=== PATIENT | female | born 1945 | race Caucasian/White ===

== ENCOUNTER 2018-09-18 09:35 | Outpatient (CLI) | payer MEDICARE, BC ==
[2018-09-18] MEDS ORDERED: CHOL200024 PO (10:37)
[2018-09-18] MEDS ORDERED: MULT-717 PO (10:37)
[2018-09-18] MEDS ORDERED: LISI-167 PO (10:37)
[2018-09-18 11:11] LABS: BASOPHILS # (AUTO) 0.03 x10^3/uL (0-0.1); BASOPHILS % (AUTO) 1 % (0-1); EOSINOPHILS # (AUTO) 0.22 x10^3/uL (0-0.4); EOSINOPHILS % (AUTO) 3 % (1-7); LYMPHOCYTES # (AUTO) 2.76 x10^3/uL (1-3.4); LYMPHOCYTES % (AUTO) 36 % (22-44); MD NO; MEAN CORPUSCULAR HEMOGLOBIN 32.8 pg (27.0-34.8); MEAN CORPUSCULAR HGB CONC 34.2 g/dL (32.4-35.8); MEAN CORPUSCULAR VOLUME 95.8 fL (80-100); MEAN PLATELET VOLUME 8.2 fL (7.4-10.4); MONOCYTES # (AUTO) 0.48 x10^3/uL (0.2-0.8); MONOCYTES % (AUTO) 6 % (2-9); NEUTROPHILS # (AUTO) 4.12 x10^3/uL (1.8-6.8); NEUTROPHILS % (AUTO) 54 % (42-75); PLATELET COUNT 229 x10^3/uL (130-400); RED BLOOD COUNT 4.55 x10^6/uL (3.82-5.3); RED CELL DISTRIBUTION WIDTH 12.6 % (9.6-15.2)
[2018-09-18 11:23] LABS: MICROSCOPIC AUTO
[2018-09-18 11:23] LABS: ALANINE AMINOTRANSFERASE 19 U/L (12-78); ALBUMIN 4.3 g/dL (3.4-5.0); ANION GAP 5 mmol/L (5-15); CALCIUM 9.7 mg/dL (8.5-10.1); CHLORIDE 106 mmol/L (98-107)
[2018-09-18 11:26] LABS: ALKALINE PHOSPHATASE 98 U/L (45-117); BILIRUBIN,TOTAL 0.5 mg/dL (0.2-1.0); CREATININE 0.76 mg/dL (0.55-1.02); TOTAL PROTEIN 7.6 g/dL (6.4-8.2)
== END 2018-09-18 23:59 | disposition home or self-care (01) ==
LOC: STAR 09:35
PROVIDERS: ATTEND Urology
DX: N20.9 Urinary calculus, unspecified (principal); Z01.818 Encounter for other preprocedural examination
CPT/HCPCS: 36415; 80053; 81001; 85025; 87086; 93005

== ENCOUNTER 2018-09-26 05:34 | Day surgery (SDC) | payer MEDICARE, BC ==
[~2018-09-26] VITALS: Ht 172.7 cm; Wt 64.5 kg
[~2018-09-26 05:34] MED LIST: CHOL200024 PO; LISI-167 PO; MULT-717 PO
[2018-09-26] MEDS ORDERED: LACTATED RINGERS 1,000 ML IV SCH (06:22)
[2018-09-26] MEDS ORDERED: LIDOCAINE-MPF 1%, 2ML INFIL ONE (06:30)
== END 2018-09-26 07:45 | disposition home or self-care (01) ==
LOC: OUT 05:34
PROVIDERS: ATTEND Urology
DX: Z02.9 Encounter for administrative examinations, unspecified (principal)

== ENCOUNTER → 2018-12-06 | Outpatient (CLI) | payer MEDICARE, BC ==
[2018-12-06 10:03] LABS: BASOPHILS # (AUTO) 0.04 x10^3/uL (0-0.1); BASOPHILS % (AUTO) 1 % (0-1); EOSINOPHILS # (AUTO) 0.19 x10^3/uL (0-0.4); EOSINOPHILS % (AUTO) 3 % (1-7); LYMPHOCYTES # (AUTO) 2.56 x10^3/uL (1-3.4); LYMPHOCYTES % (AUTO) 38 % (22-44); MD NO; MEAN CORPUSCULAR HEMOGLOBIN 32.2 pg (27.0-34.8); MEAN CORPUSCULAR HGB CONC 33.3 g/dL (32.4-35.8); MEAN CORPUSCULAR VOLUME 96.8 fL (80-100); MEAN PLATELET VOLUME 7.7 fL (7.4-10.4); MONOCYTES # (AUTO) 0.53 x10^3/uL (0.2-0.8); MONOCYTES % (AUTO) 8 % (2-9); NEUTROPHILS # (AUTO) 3.47 x10^3/uL (1.8-6.8); NEUTROPHILS % (AUTO) 51 % (42-75); PLATELET COUNT 250 x10^3/uL (130-400); RED BLOOD COUNT 4.57 x10^6/uL (3.82-5.3); RED CELL DISTRIBUTION WIDTH 12.7 % (9.6-15.2)
[2018-12-06 10:08] LABS: MICROSCOPIC AUTO
[2018-12-06 10:11] LABS: ALANINE AMINOTRANSFERASE 23 U/L (12-78); ALBUMIN 4.4 g/dL (3.4-5.0); ANION GAP 6 mmol/L (5-15); CALCIUM 9.7 mg/dL (8.5-10.1); CHLORIDE 106 mmol/L (98-107)
[2018-12-06 10:13] LABS: ALKALINE PHOSPHATASE 96 U/L (45-117); BILIRUBIN,TOTAL 0.6 mg/dL (0.2-1.0); CREATININE 0.87 mg/dL (0.55-1.02); TOTAL PROTEIN 7.8 g/dL (6.4-8.2)
== END | disposition home or self-care (01) ==
LOC: STAR 09:00
PROVIDERS: ATTEND Urology
DX: Z01.818 Encounter for other preprocedural examination (principal); N20.9 Urinary calculus, unspecified
CPT/HCPCS: 36415; 80053; 81001; 85025; 87086; 87186

== ENCOUNTER 2018-12-12 07:02 | Day surgery (SDC) | payer MEDICARE, BC ==
[~2018-12-12] VITALS: Ht 172.7 cm; Wt 63.5 kg
[2018-12-12] MEDS ORDERED: LACTATED RINGERS 1,000 ML IV SCH (07:23)
[2018-12-12 07:55] VITALS: BP 164/72
[2018-12-12] MEDS ORDERED: FENTANYL PF 250 MCG/5ML ONE (09:02)
[2018-12-12] MEDS ORDERED: MIDAZOLAM 1 MG/ML, 2ML ONE (09:02)
[2018-12-12] MEDS ORDERED: KETOROLAC 30 MG/1 ML ONE (09:04)
[2018-12-12] MEDS ORDERED: NEOSTIGMINE 1 MG/ML, 10ML ONE (09:06)
[2018-12-12] MEDS ORDERED: ONDANSETRON 2MG/ML, 2ML ONE (09:06)
[2018-12-12] MEDS ORDERED: PROPOFOL 10 MG/ML, 20ML ONE (09:06)
[2018-12-12] MEDS ORDERED: ROCURONIUM 10MG/ML,5ML ONE (09:06)
[2018-12-12] MEDS ORDERED: DEXAMETHASONE 4 MG/ML, 1ML ONE (09:06)
[2018-12-12] MEDS ORDERED: GLYCOPYRROLATE 0.2MG/1ML, 5ML ONE (09:06)
[2018-12-12] MEDS ORDERED: CEFAZOLIN 1,000 MG ONE (09:06)
[2018-12-12] MEDS ORDERED: LABETALOL 5MG/ML, 20ML IV PRN (10:00)
[2018-12-12] MEDS ORDERED: ONDANSETRON 2MG/ML, 2ML IV PRN (10:00)
[2018-12-12] MEDS ORDERED: FENTANYL PF 100 MCG/2ML IV PRN (10:00)
[2018-12-12] MEDS ORDERED: ACETAMINOPHEN 325 MG TABLET PO PRN (10:00)
[2018-12-12] MEDS ORDERED: PROMETHAZINE 25 MG/ML, 1ML IV PRN (10:00)
[2018-12-12] MEDS ORDERED: MEPERIDINE/PF 25MG/0.5ML IVPush PRN (10:00)
[2018-12-12] MEDS ORDERED: MORPHINE SULFATE 4 MG/ML, 1ML IVPush PRN (10:00)
[2018-12-12] MEDS ORDERED: PROMETHAZINE 25 MG/ML, 1ML IM PRN ×2 (10:00)
[2018-12-12] MEDS ORDERED: hydrALAzine 20 MG/ML, 1ML IV PRN (10:00)
[2018-12-12] MEDS ORDERED: PROMETHAZINE 12.5 MG SUPP PR PRN (10:00)
[2018-12-12] MEDS ORDERED: OXYcodone 5 MG/5 ML ORAL.SOL UDC PO PRN (10:00)
[2018-12-12] MEDS ORDERED: PROMETHAZINE 25 MG SUPP PR PRN (10:00)
[2018-12-12] MEDS ORDERED: ONDANSETRON ODT 8 MG PO PRN (10:00)
[2018-12-12] MEDS ORDERED: HYDROmorphone 2 MG/ML, 1ML IVPush PRN (10:00)
[2018-12-12] MEDS ORDERED: PHENYLEPHRINE 10 MG/ML ONE (10:18)
== END 2018-12-12 13:35 | disposition home or self-care (01) ==
LOC: OUT 07:02
PROVIDERS: ATTEND Urology
DX: N20.0 Calculus of kidney (principal); I10 Essential (primary) hypertension
CPT/HCPCS: 50590; J0690; J1100; J1885; J2250; J2370; J2405; J2704; J2710; J3010; J7120